=== PATIENT | female | born 1995 | race Caucasian/White ===

== ENCOUNTER 2021-09-06 13:04 | Observation (INO) | payer OTHER, SELFPAY ==
--- NOTE | ~2021-09-06 | US_ITS ---
EXAMINATION: US OB BPP wo non-stress, US umbilical doppler, US OB /maternal detail DATE: 09/06/2021 15:25 INDICATION: anatomic survey, biophysical profile, amniotic fluid index assessment, placental as sessment, estimated weight, and estimated date of confinement, unknown trimester, no c are TECHNIQUE: Real-time pelvic ultrasound was performed. The interpreting radiologist was not present fo r the study. COMPARISON: None. FINDINGS: There is a single living fetus in vertex presentation. The placenta is anterior. heart rate is 130 beats per minute (bpm). The amniotic fluid index is 1.9 cm which is low (normal range: 7.1 cm to 2.1 cm). Biophysical profile performed by the technologist: breathing (30 sec sustained breathing in 30 minutes): 2 out of 2 movement (3 gross body movements in 30 minutes): 2 out of 2 tone (one episode of ezzvqpi-jjnrvxfwk-hbuqrcy limb movement): 2 out of 2 Amniotic fluid pocket (2 cm): 0 out of 2 Total score: 6 out of 8 There is limited evaluation of the anatomy due to gestational age. The intracranial structures, spine, diaphragm, bladder, three-vessel cord, stomach, cord insertion, and four-chamber heart are grossly normal. The following biometric data were obtained: Biparietal diameter (BPD): 8.5 cm; head circumference (HC): 31.4 cm; abdominal circumference (AC): 30 .9 cm; femur length (FL): 6.8 cm. These measurements are concordant. Estimated weight is 2545 g +/- 381 g, which correlates with the <3rd percentile when 09/06/2021 is used as estimated date of delivery. As single measurements, these parameters are each equal to the following estimated gestational ages w ith ranges of +/- 2 standard deviations: BPD: 34 weeks 1 days +/- 3 weeks 1 days. HC: 35 weeks 2 days +/- 3 weeks 0 days. AC: 34 weeks 6 days +/- 3 weeks 0 days. FL: 35 weeks 1 days +/- 3 weeks 0 days. estimated gestational age based solely on measurements from this exam is 34 weeks 6 days +/- 2 weeks 3 days. Umbilical artery pulsed Doppler demonstrates peak systolic to end-diastolic velocity ratios (S/D rati os) of 2.3, 2.8 near the fetus, 3.1 in the mid cord, and 2.4 near the placenta (5th percentile = 1.83 , 95th percentile = 2.89). IMPRESSION: 1. Single living fetus in vertex presentation. 2. Biophysical profile 6 out of 8. No points for amniotic fluid pocket. 3. Severe oligohydramnios. 4. Normal umbilical artery Doppler ratios. 5. Estimated weight is 2545 g +/- 381 g, which correlates with the <3rd percentile when 09/07/19 22 is used as estimated date of delivery. 6. Limited anatomic survey. Reviewed, dictated and finalized at location B. IMPRESSION: 1. Single living fetus in vertex presentation. 2. Biophysical profile 6 out of 8. No points for amniotic fluid pocket. 3. Severe oligohydramnios. 4. Normal umbilical artery Doppler ratios. 5. Estimated weight is 2545 g +/- 381 g, which correlates with the <3rd p ercentile when 09/06/2021 is used as estimated date of delivery. 6. Limited anatomic survey. IMPRESSION: 1. Single living fetus in vertex presentation. 2. Biophysical profile 6 out of 8. No points for amniotic fluid pocket. 3. Severe oligohydramnios. 4. Normal umbilical artery Doppler ratios. 5. Estimated weight is 2545 g +/- 381 g, which correlates with the <3rd p ercentile when 09/06/2021 is used as estimated date of delivery. 6. Limited anatomic survey.
[2021-09-06 13:50] VITALS: BP 132/74; PULSE 66
[2021-09-06 14:42] LABS: Alanine Aminotransferase 22 U/L (4-35); Albumin Level 3.8 g/dL (3.5-5.1); Alkaline Phosphatase 178 U/L (38-126); Anion Gap 6 mmol/L (8-16); Aspartate Amino Transferase 31 U/L (14-36); Bilirubin,Total 0.3 mg/dL (0.2-1.3); Blood Urea Nitrogen 13 mg/dL (7-17); Calcium 8.6 mg/dL (8.4-10.2); Carbon Dioxide 22 mmol/L (22-30); Chloride 108 mmol/L (98-107); Estimated Glomerular Filt Rate > 60; Glucose 76 mg/dL (65-110); Potassium 3.7 mmol/L (3.4-5.0); Sodium 136 mmol/L (137-145)
[2021-09-06 14:43] LABS: Uric Acid 5.5 mg/dL (2.5-7.5)
[2021-09-06 14:46] LABS: Amphetamine Screen Urine Negative (Negative); Barbiturate Screen Urine Negative (Negative); Benzodiazepines Screen Urine Negative (Negative); Cannabinoid Screen Urine Positive (Negative); Cocaine Screen Urine Negative (Negative); Methadone Screen Urine Negative (Negative); Opiate Screen Urine Negative (Negative); Phencyclidine Screen Urine Negative (Negative)
[2021-09-06 14:52] LABS: Basophils Percent Auto 0.2 % (0.2-1.2); Eosinophils Percent Auto 0.3 % (0-4.4); Hematocrit 34.7 % (37.0-47.0); Hemoglobin 11.7 g/dL (12.0-15.0); Immature Granulocyte Absolute 0.03 K/mm3 (0.00-0.031); Immature Granulocyte Percent A 0.3 % (0-0.5); Lymphocytes Absolute Auto 2.25 K/mm3 (0.9-3.2); Lymphocytes Percent Auto 21.1 % (18.3-44.2); Mean Corpuscular HGB Conc 33.7 g/dl (32-36); Mean Corpuscular Hemoglobin 31.7 pg (26-34); Mean Platelet Volume 11.1 fl (7.4-10.4); Monocytes Absolute Auto 0.7 K/mm3 (0.1-0.6); Monocytes Percent Auto 6.4 % (2.6-8.5); Neutrophils Absolute Auto 7.6 K/mm3 (1.3-6.7); Neutrophils Percent Auto 71.7 % (45.5-73.1); Platelet Count Result 324 k/mm3 (150-375); Red Blood Count 3.69 M/mm3 (4.2-5.4); Red Cell Distribution Width 13.3 % (11.5-14.5); White Blood Count 10.6 K/mm3 (4.5-10.0)
[2021-09-06 15:06] VITALS: BMI 28.8
[2021-09-06 15:07] LABS: Add Urine Microscopic? YES; Appearance Urine Cloudy (Clear); Bacteria Urine Trace /hpf; Bilirubin Urine Negative (Negative); Blood Urine Negative (Negative); Color Urine Yellow (Yellow); Glucose Urine UA Negative (Negative); Ketones Urine Negative (Negative); Leukocyte Esterase Ur 2+ LEU/UL (NEGATIVE); Mucus Urine Rare /lpf; Nitrate Urine Negative (Negative); Protein Urine Negative (Negative); RBC Urine 0-2 /hpf (0-2); Specific Grav Ur 1.012 (1.001-1.035); Squamous Epithelial Cell Urine Moderate /hpf (Few); Urobilinogen Urine Negative mg/dL (<2.0); WBC Urine 0-3 /hpf (0-3)
[2021-09-06 15:16] LABS: Hepatitis B Surface Antigen Negative (Negative); Rubella IgG Antibody 22.8 IU/ML
[2021-09-06 15:23] LABS: HIV 1/2 Ab P24 Ag Result Negative (Negative)
[2021-09-07 13:50] LABS: Rapid Plasma Reagin Non-Reactive (NonReactive)
--- NOTE | 2021-09-08 07:42 | PM.OBTRLD ---
OB - Triage/Final Diagnosis Visit Information Date of evaluation: 09/06/21 Reason for evaluation: threatened labor Comments/Additional reasons for admission: I have assessed the risk for this patient, Glenis Cancino, and determined that she would benefit from observation care. Evaluation Laboratory results: Laboratory Tests 09/06/21 09/06/21 09/06/21 14:03 14:04 14:05 WBC 10.6 H RBC 3.69 L Hgb 11.7 L Hct 34.7 L MCV 94.0 MCH 31.7 MCHC 33.7 RDW 13.3 Plt Count 324 MPV 11.1 H Immature Gran % (Auto) 0.3 Neut % (Auto) 71.7 Lymph % (Auto) 21.1 [place] % (Auto) 6.4 Eos % (Auto) 0.3 Baso % (Auto) 0.2 Lymph # (Auto) 2.25 [place] # (Auto) 0.7 H Eos # (Auto) 0.0 Baso # (Auto) 0.0 Abs Immat Gran (auto) 0.03 Absolute Neuts (auto) 7.6 H Absolute Nucleated RBC 0.0 Nucleated RBC % 0.0 Sodium Potassium Chloride Carbon Dioxide Anion Gap BUN Creatinine Estim Creat Clear Calc Estimated GFR Glucose Uric Acid Calcium Total Bilirubin AST ALT Alkaline Phosphatase Total Protein Albumin Urine Color Yellow Urine Appearance Cloudy H Urine pH 8.0 Ur Specific [place] 1.012 Urine Protein Negative Urine Glucose (UA) Negative Urine Ketones Negative Ur Blood (Man) Negative Urine Nitrate Negative Urine Bilirubin Negative Urine Urobilinogen Negative Ur Leukocyte Esterase 2+ H Urine RBC 0-2 Urine WBC 0-3 Ur Squamous Epith Cells Moderate H Urine Bacteria Trace Urine Mucus Rare Urine Opiates Screen Urine Methadone Screen Ur Barbiturates Screen Ur Phencyclidine Scrn Ur Amphetamine Screen U Benzodiazepines Scrn Urine Cocaine Screen U Cannabinoids Screen RPR Hep Bs Antigen HIV 1&2 Ab/P24 Ag 4thGn Rubella IgG Antibody Blood Type A Positive Antibody Screen Negative 09/06/21 09/06/21 09/06/21 14:05 14:05 14:06 WBC RBC Hgb Hct MCV MCH MCHC RDW Plt Count MPV Immature Gran % (Auto) Neut % (Auto) Lymph % (Auto) [place] % (Auto) Eos % (Auto) Baso % (Auto) Lymph # (Auto) [place] # (Auto) Eos # (Auto) Baso # (Auto) Abs Immat Gran (auto) Absolute Neuts (auto) Absolute Nucleated RBC Nucleated RBC % Sodium Potassium Chloride Carbon Dioxide Anion Gap BUN Creatinine Estim Creat Clear Calc Estimated GFR Glucose Uric Acid Calcium Total Bilirubin AST ALT Alkaline Phosphatase Total Protein Albumin Urine Color Urine Appearance Urine pH Ur Specific [place] Urine Protein Urine Glucose (UA) Urine Ketones Ur Blood (Man) Urine Nitrate Urine Bilirubin Urine Urobilinogen Ur Leukocyte Esterase Urine RBC Urine WBC Ur Squamous Epith Cells Urine Bacteria Urine Mucus Urine Opiates Screen Urine Methadone Screen Ur Barbiturates Screen Ur Phencyclidine Scrn Ur Amphetamine Screen U Benzodiazepines Scrn Urine Cocaine Screen U Cannabinoids Screen RPR Non-reactive Hep Bs Antigen Negative HIV 1&2 Ab/P24 Ag 4thGn Negative Rubella IgG Antibody 22.8 Blood Type Antibody Screen 09/06/21 09/06/21 09/06/21 14:06 14:06 14:12 WBC RBC Hgb Hct MCV MCH MCHC RDW Plt Count MPV Immature Gran % (Auto) Neut % (Auto) Lymph % (Auto) [place] % (Auto) Eos % (Auto) Baso % (Auto) Lymph # (Auto) [place] # (Auto) Eos # (Auto) Baso # (Auto) Abs Immat Gran (auto) Absolute Neuts (auto) Absolute Nucleated RBC Nucleated RBC % Sodium 136 L Potassium 3.7 Chloride 108 H Carbon Dioxide 22 Anion Gap 6 L BUN 13 Creatinine 0.80 Estim Creat Clear Calc Not Reportable Estimated GFR > 60 Glucose 76 Uric Acid 5.5 Calc
== END 2021-09-06 16:15 | disposition home or self-care (01) ==
PROVIDERS: Admitting Provider Obstetrics & Gynecology; Visit Provider Obstetrics & Gynecology
DX: O47.1 False labor at or after 37 completed weeks of gestation (principal); Z3A.40 40 weeks gestation of pregnancy; Z11.4 Encounter for screening for human immunodeficiency virus [HIV]
CPT/HCPCS: 36415; 76805; 76819; 76820; 80053; 80307; 81001; 84550; 85025; 86592; 86703; 86762; 86850; 86900; 86901; 87086; 87340; G0378; G0379; G0432

== ENCOUNTER 2021-09-07 06:25 | Inpatient (IN) | payer OTHER, SELFPAY ==
[2021-09-07] VITALS (52 sets, daily range): BP systolic 95–132; BP diastolic 49–84; PULSE 39–247; RESP 16–20; TEMP 35.7–36.6; O2SAT 73–100; BMI 28.8
--- NOTE | 2021-09-07 06:59 | LDADM ---
This patient, Glenis Cancino, was admitted to OB Post 117 on 09/07/21 at 06:25. Plans for labor, pain management and were discussed with patient. Patient/family oriented to hospital policies and general routines including ID bracelet, bed and alarms, visiting hours, pain management, procedures, bathroom and other care routines, personal items, smoking policy, room service/diet and guest tray routines, infant security routines, and visiting hours. Patient/Family are encouraged to report perceived risks to care and to ask questions if they do not understand what they are told or what they should do. See OBIX for further documentation.
--- NOTE | 2021-09-07 07:02 | PM.IMHP ---
H&P: HPI History of Present Illness Date/Time: 09/07/21 07:02 Chief Complaint: 26-year-old 2 para 1 with previous seen as a walk-in yesterday gives a due date of yesterday complaining of regular contractions. She states she was seen in [place] and we got no information about that we gave herself a due date of 09/06. Ultrasound yesterday showed low fluid and a growth restricted baby. She is presently rodri in active labor. Risks and benefits of reviewed Review of Systems Review of Systems: All systems reviewed & are unremarkable except as noted in HPI and below PMFSH Family History Family History Other Unknown family medical history Social History Social History Substance use: current Spiritual care concerns: No Meds Home Medications and Allergies Home Medications Medication Instructions Recorded Confirmed Type No Home Medications 09/07/21 09/07/21 History Allergies Allergy/AdvReac Type Severity Reaction Status Date / Time No Known Allergies Allergy Verified 02/28/16 10:46 Exam Const: General: no acute distress Eyes: General: appearance normal, both eyes and all related structures Neck: Neck: supple and no JVD Thyroid: thyroid normal Resp: Effort & Inspection: normal respiratory effort Auscultation: clear to auscultation bilaterally Cardio: Rate: regular rate Rhythm: regular rhythm GI: Inspection: non-distended GI Palp: Yes Soft to palpation, No Tenderness to palpation present (GI) and No Guarding due to palpation present (GI) Auscultation: normal bowel sounds : External Female Exam: normal external appearance Speculum Exam - Vagina: normal appearance of the vagina Speculum Exam - Cervix: normal appearance of the cervix ( 2cm by RN exam. FHTs okay) Bimanual exam- vagina & uterus: enlarged and soft Skin: General skin exam: no rashes or lesions noted Extrem: General: normal to inspection and no edema Psych: Mental Status: mental status grossly normal Affect: normal affect Assessment and Plan Additional Plan impression: Suspected term with IUGR and low fluid in active labor with previous section Plan: Repeat low-transverse section
[2021-09-07] MEDS: LACTATED RINGERS 1,000 ML 125 ML IV CONT (07:10)
[2021-09-07] MEDS: ONDANSETRON INJ 4 MG/2 ML VIAL (07:14)
--- NOTE | 2021-09-07 07:44 | WPDHPUPDATE1 ---
History and Physical Update Update Date/Time: 09/07/21 07:44 History and Physical has been reviewed, including an updated exam of the patient. There are NO changes in the patient's condition. Risks, benefits, and alternatives have been discussed and questions answered. Patient agrees to proceed with procedure.
[2021-09-07] MEDS: ceFAZolin 2 GM/D5W 50 ML 2 GM/50 ML BAG IVPB (08:07)
--- NOTE | 2021-09-07 08:21 | WPDANESEPPF ---
Anes - Initial Pre Proc Eval Procedure: Operation Date: 09/07/21 07:30 Proposed Procedures p Section - Ayaz Garcia MD Date/Time: 09/07/21 08:21 Surgeon: Ayaz Garcia MD Pre Op Diagnosis: Cramping Patient Data Age: 26 Gender: F Height: 1.68 m Weight: 81 kg Allergies Allergy/AdvReac Type Severity Reaction Status Date / Time No Known Allergies Allergy Verified 02/28/16 10:46 Home Medications Medication Instructions Recorded Confirmed Type No Home Medications 09/07/21 09/07/21 History hydrocodone-acetaminophen 1 tablet PO Q4H PRN #30 tablet 09/07/21 Rx Patient hx anesthesia problems: none Family hx anesthesia problems: none Results Review: All pre-operative results and documents have been reviewed as part of the pre-operative evaluation. [facility] Surgical History Surgical History (Updated 09/07/21 @ 08:21 by Ayaz Dutton MD) History of section Family History Family History Other Unknown family medical history Social History Social History Smoking packs per day: 0.5 Smoking cigarettes per day: 10.0 Years smoked: 8 Smoking pack-years: 4.00 Smoking status: Current every day smoker Tobacco type: cigarettes Substance use: current Spiritual care concerns: No Anes - Eval Final PreProcedure Day of Procedure 09/07/21 08:21 Patient weight: overweight Last oral intake: >/= 8 hours ASA classification: III Emergent: no Anesthetic plan: proceed Anesthesia type and monitoring: regional spinal and standard monitoring Results Review: All pre-operative results and documents have been reviewed as part of the pre-operative evaluation. Informed Consent: The patient's anesthetic plan and its attendant risks and benefits were discussed with the patient/family/POA. Questions were solicited and answers provided to the satisfaction of the patient/family/POA.
--- NOTE | 2021-09-07 08:46 | W.PM.PROC2 ---
Procedure Note - Detailed Date of Procedure 09/07/21 Pre-op Diagnosis Cramping/active labor at term in a patient with no previous care and previous section with IUGR and oligohydramnios Post-op Diagnosis Same Procedure Performed Repeat low-transverse section Surgeon Ayaz Garcia MD Anesthesia Spinal Indications A 26-year-old admitted in active labor suspected at term with IUGR and low fluid with previous section Findings Male infant 5lb 7oz Apgars 8 and 9 at 1 and 5minutes respectively. Thick meconium was present and no other fluid. Normal-appearing ovaries and tubes were seen bilaterally Description of Procedure The patient was admitted in active labor and scheduled for section. She had no previous care except an ultrasound the day before which showed low fluid and IUGR. After obtaining informed consent she was taken back prepped draped in the normal sterile fashion placed in the supine position. Under excellent spinal anesthetic the previous Pfannenstiel incision was progressive layers to fascia. Fascia incised midline carried in upward outward fashion bilaterally. Underlying muscles sharply dissected parietal peritoneum L by Mary Ellen clamps. Abdomen was then by sharp dissection carried superiorly and inferiorly dome of the bladder. Bladder blade placed bladder flap formed bladder blade returned a low-transverse incision made. Head delivered in the PAUL position. Anterior posterior shoulder delivered spontaneously cord clamped to was a cut and infant passed off the table given Apgars of 8 and 9 at and 5minutes respectively. Placenta delivered intact manually and uterus delivered on the abdomen wrapped in moist towel. After assuring no membranes or debris remained in the uterus uterus was closed with continuous running 0 Vicryl from lateral edge to lateral edge followed by a 2nd imbricating running locking 0 Vicryl from lateral edge to lateral edge. Hemostasis was assured. Ovaries and tubes appeared within normal limits and the uterus returned the abdomen. The hysterotomy incision inspected 1 last time noted be hemostatic and laps removed and accounted for. The fascia closed with continuous running 0 Vicryl from lateral edge to midline bilaterally. Irrigation subcutaneous layer and the skin closed with 4 Monocryl and glue. Blood loss by QBL was 165. All sponge, needle, instrument counts were correct. There were no immediate complications noted Estimated Blood Loss 165 Drains No Packing No Pathology None sent Complications No immediate complications Condition Stable Disposition PACU
--- NOTE | 2021-09-07 09:35 | SUR.PHASEI ---
[place] jolly applied, [employer].
[2021-09-07] MEDS: OXYTOCIN 30 UNITS/NS 500 ML 30 UNITS/500 ML BAG 125 UNITS IV CONT (09:40)
--- NOTE | 2021-09-07 10:00 | SUR.PHASEI ---
Pt states she is feeling hot. Temp still low end, turned down to low setting but kept in use.
[2021-09-07] MEDS: fentaNYL CITRATE INJ (*CRX) 100 MCG/2 ML VIAL 25 MCG IV PUSH ×2 (10:42→11:06)
--- NOTE | 2021-09-07 11:00 | PC.NURSE ---
Old records rc'vd, will adjust to edc 09/13 as per original ultrasound, 39+1 today.
--- NOTE | 2021-09-07 11:45 | SUR.PHASEI ---
Report called to Chace Miller RN. Pt going to room 285 for pp care. Sending up with jonathon jolly.
--- NOTE | 2021-09-07 11:58 | OBPPTRN ---
Patient transferred to post room #285 via stretcher. Support person present her mother, Amber. Oriented to unit, room, information board, rooming in, admission packet and security measures. PT and her mother both recipients of such instructions. PT received instructions this shift via one to one discussion, mom baby care guide and demonstrations throughout this shift. Introductions made and plan of care per post op c section, pain management, bottle feeding, daily care activities. Pt shows no barriers to learning at this time. Patient verbalizes understanding.
[2021-09-07] MEDS: DEXTROSE 5%/0.45% SOD CHL 1,000 ML 125 ML IV CONT (14:12)
[2021-09-07] MEDS: KETOROLAC 30 MG/ML VIAL (*BKC) IV PUSH ×2 (14:14→19:55)
[2021-09-07] MEDS: SIMETHICONE 80 MG TAB.CHEW PO ×3 (14:15→19:55)
[2021-09-07] MEDS: ALBUTEROL SULFATE (*SP) AEROSOL 1 PUFF 2 PUFF INHALATION (17:36)
[2021-09-07] MEDS: ACETAMINOPHEN 325 MG TABLET 650 MG PO (18:23)
[2021-09-07] MEDS: DOCUSATE SODIUM 100 MG CAPSULE PO (18:24)
[2021-09-08] MEDS: SIMETHICONE 80 MG TAB.CHEW PO ×3 (04:21→19:35)
[2021-09-08] MEDS: KETOROLAC 30 MG/ML VIAL (*BKC) IV PUSH (04:21)
[2021-09-08 04:30] VITALS: BP 126/60; PULSE 62; RESP 18; TEMP 36.4; O2SAT 100
[2021-09-08 05:29] LABS: Basophils Percent Auto 0.2 % (0.2-1.2); Eosinophils Percent Auto 0.3 % (0-4.4); Hematocrit 30.9 % (37.0-47.0); Hemoglobin 10.5 g/dL (12.0-15.0); Immature Granulocyte Absolute 0.05 K/mm3 (0.00-0.031); Immature Granulocyte Percent A 0.4 % (0-0.5); Lymphocytes Absolute Auto 1.99 K/mm3 (0.9-3.2); Lymphocytes Percent Auto 17.3 % (18.3-44.2); Mean Corpuscular Hemoglobin 31.3 pg (26-34); Mean Platelet Volume 11.4 fl (7.4-10.4); Monocytes Absolute Auto 0.7 K/mm3 (0.1-0.6); Monocytes Percent Auto 5.6 % (2.6-8.5); Neutrophils Absolute Auto 8.8 K/mm3 (1.3-6.7); Neutrophils Percent Auto 76.2 % (45.5-73.1); Platelet Count Result 277 k/mm3 (150-375); Red Blood Count 3.36 M/mm3 (4.2-5.4); Red Cell Distribution Width 13.1 % (11.5-14.5); White Blood Count 11.5 K/mm3 (4.5-10.0)
[2021-09-08 07:35] VITALS: BP 125/67; PULSE 65; RESP 16; TEMP 36.9; O2SAT 100
--- NOTE | 2021-09-08 07:43 | PM.OBPNVD ---
OB - PN: Subj Subjective Date/time seen: 09/08/21 07:43 Patient comments: no complaints and pain well controlled baby status: doing well OB - PN: Obj Data Labs CBC & Chem 7: 09/08/21 04:30 Labs: Laboratory Results - last 24 hr 09/08/21 04:30 WBC 11.5 H RBC 3.36 L Hgb 10.5 L Hct 30.9 L MCV 92.0 MCH 31.3 MCHC 34.0 RDW 13.1 Plt Count 277 MPV 11.4 H Immature Gran % (Auto) 0.4 Neut % (Auto) 76.2 H Lymph % (Auto) 17.3 L [place] % (Auto) 5.6 Eos % (Auto) 0.3 Baso % (Auto) 0.2 Lymph # (Auto) 1.99 [place] # (Auto) 0.7 H Eos # (Auto) 0.0 Baso # (Auto) 0.0 Abs Immat Gran (auto) 0.05 H Absolute Neuts (auto) 8.8 H Absolute Nucleated RBC 0.0 Nucleated RBC % 0.0 OB - PN A/P Plan day: 1 Plan: routine care Time Spent With Patient Time: Total time spent is greater than 50% in coordination of care (as documented) at patient's floor/unit and/or counseling patient: Time with patient: less than 15 minutes Review of Systems Review of Systems: All systems reviewed & are unremarkable except as noted in HPI and below Exam Const: General: no acute distress Eyes: General: appearance normal, both eyes and all related structures Neck: Neck: supple and no JVD Thyroid: thyroid normal Resp: Effort & Inspection: normal respiratory effort Auscultation: clear to auscultation bilaterally Cardio: Rate: regular rate Rhythm: regular rhythm GI: Inspection: normal to inspection and incision (cdi) Percussion: Yes normal to percussion : General: Yes bladder normal to palpation External Female Exam: normal external appearance Speculum Exam - Vagina: normal vaginal discharge and No vaginal bleeding Speculum Exam - Cervix: nontender Bimanual exam- vagina & uterus: bladder normal to palpation and No Cervical tenderness present OB/external & speculum: No vaginal bleeding Skin: General skin exam: no rashes or lesions noted Extrem: General: normal to inspection and no edema Psych: Mental Status: mental status grossly normal Affect: normal affect
[2021-09-08 08:00] VITALS: PULSE 65; RESP 16; O2SAT 100
[2021-09-08] MEDS: DOCUSATE SODIUM 100 MG CAPSULE PO ×2 (10:45→16:24)
[2021-09-08] MEDS: IBUPROFEN 600 MG TABLET PO ×2 (10:45→19:36)
[2021-09-08] MEDS: HYDROcodone/acetaminophen (*CRX) 5-325 MG TABLET 1 TAB PO (10:46)
--- NOTE | 2021-09-08 13:17 | PCCCNOTE ---
Care Coordination. Pt. referred to care coordination for mother and baby positive UDS for THC, little care, and history of fentanyl/herion use. Met with pt. and her mother at bedside. Pt. domo went to rehab last summer at [facility] in [place] and found out she was . She reports that she stopped using drugs after rehab except for marijuana. She spent some time in [place] with FOB and then about 4 months in [place] with her mother after discharge from rehab. She is on probation and they told her she needed to move back to this area after pt. moved from [place] to [place] with FOB. She recently got apartment here and was supposed to move in today. She has some friends and family getting it setup today, so pt. can discharge there tomorrow with FOB. Pt.'s mother will stay with them about a week before returning home. Pt. reports sister is in area and very supportive as well as FOB. Provided pt. with OP drug rehab information for continued support as she stays sober. Pt. had daughter around 2014 and when she was 4 years old was given up for adoption due to pt.'s drug use. Pt. reports was setup with [facility] in [place], [place], but transferring it over to [facility] here. She reports family has helped get all necessary baby care supplies and denies other community resource needs. Pt. reports through probation she gets drug tested and has been clean. Spoke with Jacquelyn Godwin from [facility] hotline and she took pt.'s situation as information only Intake ID# [id number].
--- NOTE | 2021-09-08 15:05 | WPDANLDPN2 ---
Anes-Prog Note L&D Date/Time: 09/08/21 15:05 Comfortable throughout: section Neuraxial method: spinal Epidural/Spinal procedure site: clean & non-tender Neuro status: Neuro function grossly intact. Cardiovascular status: normal Respiratory status: normal Airway patency: baseline Mental status: baseline Post-Op hydration status: normal Vital Signs: Last Vital Signs Temp 36.9 C 09/08/21 07:35 Pulse 65 09/08/21 08:00 Resp 16 09/08/21 08:00 BP 125/67 09/08/21 07:35 Pulse Ox 100 09/08/21 08:00 Pain score (VAS): 06/27 I/O: Intake & Output 09/07/21 09/08/21 09/08/21 23:59 07:59 15:59 Intake Total 1080 900 Output Total 1200 750 Balance -120 150 Post-procedural complaints: none Patient feedback: Patient satisfied with anesthetic care.
--- NOTE | 2021-09-08 15:05 | WPDANLDNPN2 ---
Anes-Prog Note L&D-Neuraxial Date/Time: 09/08/21 15:05 Neuraxial medications: intrathecal PF morphine Opiod-related complaints: none Patient feedback: Patient satisfied with post-operative pain management.
[2021-09-08] MEDS: HYDROcodone/acetaminophen (*CRX) 10-325 MG TABLET 1 TAB PO ×2 (16:23→19:36)
[2021-09-08 18:50] VITALS: BP 129/71; PULSE 62; RESP 16; TEMP 36.4
[2021-09-09] MEDS: SIMETHICONE 80 MG TAB.CHEW PO ×3 (01:26→09:56)
[2021-09-09] MEDS: HYDROcodone/acetaminophen (*CRX) 10-325 MG TABLET 1 TAB PO ×3 (01:26→09:55)
[2021-09-09] MEDS: IBUPROFEN 600 MG TABLET PO (04:10)
--- NOTE | 2021-09-09 07:16 | PM.DS ---
DS: Admitting Diagnosis Discharge Date Admitting Diagnosis term /no care / previous section /: oligohydramnios in labor DS: Summary Hospital Course Hospital Course: the patient was admitted in active labor. She had no care by gave a due date 40 weeks gestation. Ultrasound showed oligohydramnios and IUGR. She underwent low-transverse section. Her hospital course unremarkable. She remained afebrile. She was up, voiding without difficulty, ambulating, generally without complaints. Time Spent with Patient Time attestation: Total time spent providing and/or coordinating discharge services: Exam Const: General: no acute distress Eyes: General: appearance normal, both eyes and all related structures Neck: Neck: supple and no JVD Thyroid: thyroid normal Resp: Effort & Inspection: normal respiratory effort Auscultation: clear to auscultation bilaterally Cardio: Rate: regular rate Rhythm: regular rhythm GI: Inspection: non-distended GI Palp: Yes Soft to palpation, No Tenderness to palpation present (GI) and No Guarding due to palpation present (GI) Auscultation: normal bowel sounds : General: Yes bladder normal to palpation External Female Exam: normal external appearance Speculum Exam - Vagina: normal vaginal discharge and No vaginal bleeding Speculum Exam - Cervix: nontender Bimanual exam- vagina & uterus: bladder normal to palpation and No Cervical tenderness present OB/external & speculum: No vaginal bleeding Skin: General skin exam: no rashes or lesions noted Extrem: General: normal to inspection and no edema Psych: Mental Status: mental status grossly normal Affect: normal affect Discharge Plan Discharge Attending physician on discharge: Ayaz Garcia Discharging Clinician: Ayaz Garcia Patient Disposition: Home, Self-Care Activity: may shower, no straining and pelvic rest Diet: heart healthy Wound Care Instructions: follow printed instructions Patient Instructions: Antibiotic Form Stand Alone Forms: General Discharge Information Follow-up/Referrals: Ayaz Garcia MD [Physician] - Discharge Medications: New hydrocodone-acetaminophen 5-325 mg tablet 1 tablet PO Q4H PRN (Reason: pain) Qty: 30 RF: 0 No Action No Home Medications RF: 0 Date of admission: 09/07/21 06:25 Primary Care Provider: PHYSICIAN,AUTOMOBILE RADIO REPAIRER Admitting Provider: Ayaz Garcia Attending physician on admission: Ayaz Garcia Condition: Stable
--- NOTE | 2021-09-09 07:19 | PM.OBPNVD ---
OB - PN: Subj Subjective Date/time seen: 09/09/21 07:19 Patient comments: no complaints and pain well controlled baby status: doing well OB - PN: Obj Data Labs CBC & Chem 7: 09/08/21 04:30 OB - PN A/P Plan day: 2 Plan: routine care, discharge home and follow up 6 weeks (4) Time Spent With Patient Time: Total time spent is greater than 50% in coordination of care (as documented) at patient's floor/unit and/or counseling patient: Time with patient: less than 15 minutes Review of Systems Review of Systems: All systems reviewed & are unremarkable except as noted in HPI and below Exam Const: General: no acute distress Eyes: General: appearance normal, both eyes and all related structures Neck: Neck: supple and no JVD Thyroid: thyroid normal Resp: Effort & Inspection: normal respiratory effort Auscultation: clear to auscultation bilaterally Cardio: Rate: regular rate Rhythm: regular rhythm GI: Inspection: non-distended GI Palp: Yes Soft to palpation, No Tenderness to palpation present (GI) and No Guarding due to palpation present (GI) Auscultation: normal bowel sounds : General: Yes bladder normal to palpation External Female Exam: normal external appearance Speculum Exam - Vagina: normal vaginal discharge and No vaginal bleeding Speculum Exam - Cervix: nontender Bimanual exam- vagina & uterus: bladder normal to palpation and No Cervical tenderness present OB/external & speculum: No vaginal bleeding Skin: General skin exam: no rashes or lesions noted Extrem: General: normal to inspection and no edema Psych: Mental Status: mental status grossly normal Affect: normal affect
[2021-09-09 08:00] VITALS: BP 123/59; PULSE 70; RESP 18; TEMP 36.7; O2SAT 100
[2021-09-09] MEDS: TETANUS,DIPHTHERIA,AC PERTUSSIS ADULT (0.5 ML) BOOSTRIX IM (09:54)
[2021-09-09] MEDS: DOCUSATE SODIUM 100 MG CAPSULE PO (09:55)
--- NOTE | 2021-09-09 10:48 | PC.NURSE ---
Patient was given the opportunity to view the discharge video Mother & Baby Care, The First Two Weeks and to ask questions. Patient declined viewing the video and has been given the mother/baby guide for home reference.
[2021-09-10 10:11] VITALS: BP 123/75; PULSE 67; RESP 16; TEMP 36.7; O2SAT 99
== END 2021-09-09 11:15 | disposition home or self-care (01) | DRG 540 ==
LOC: ANHOBPP 07:05 → ANHOB2 11:59
PROVIDERS: Admitting Provider Obstetrics & Gynecology; Visit Provider Obstetrics & Gynecology
PROC: 10D00Z1 Extraction of Products of Conception, Low, Open Approach (ICD-10-PCS; CPT 59514; principal; 2021-09-07 07:30)
DX: O41.03X0 Oligohydramnios, third trimester, not applicable or unspecified (principal); Z37.0 Single live birth; Z3A.39 39 weeks gestation of pregnancy; O36.5930 Maternal care for other known or suspected poor fetal growth, third trimester, not applicable or unspecified; O34.211 Maternal care for low transverse scar from previous cesarean delivery; O77.0 Labor and delivery complicated by meconium in amniotic fluid
CPT/HCPCS: 36415; 85025; 90715; A9270; J0131; J0690; J1885; J2274; J2405; J2590; J3010; J7120